=== PATIENT | male | born 1965 | race Caucasian/White ===

== ENCOUNTER 2016-10-28 08:24 | Emergency (ER) | payer OTHER ==
[~2016-10-28] VITALS: Ht 177.8 cm; Wt 123.0 kg
[~2016-10-28 08:24] MED LIST: AMLO5TAB2 PO; ASPI1TAB69 PO; CARA1SUS3 PO; CYCL1TAB29 PO; DIPH25CA PO; LACTCHW3 CHEW; LAMO200T PO; LITH300C2 PO; LORA10TA PO; METR-1 PO; NORC5TAB PO; PRAZ5CAP PO; PRED20 PO; RISP2TAB37 PO; VENTAER INH
[2016-10-28 08:38] VITALS: BP 177/86; PULSE 62; RESP 16; TEMP 98.9; O2SAT 97
[2016-10-28] MEDS ORDERED: PRED20 PO (09:42)
[2016-10-28] MEDS ORDERED: AZIT250T3 PO (09:43)
--- NOTE | 2016-10-28 09:43 | PD ---
HPI Chief Complaint: cough Time Seen by Provider: 09:33 Travel History International Travel<30 days: No Contact w/Intl Traveler<30days: No History of Present Illness HPI This is a 51-year-old male who presents to the emergency department with a history of asthma with increasing cough over the past 4 days, constant, moderate severity feeling like he is wheezing with green sputum production. He' s had increasing difficulty exerting himself. He has been taking his albuterol inhaler but it's not been helping. He's never been hospitalized for his asthma before. He doesn't smoke cigarettes. PFSH Past Medical History Narrative Medical Asthma since childhood Diverticulitis High blood pressure Arthritis: Yes (LOWER BACK) Asthma: Yes Bipolar Disorder: Yes (DIAGNOSED IN ) Cancer: No Cardiovascular Problems: Yes Diminished Hearing: No Diverticulitis: Yes (ULCERATIVE COLITIS) Endocrine: No Gastrointestinal Disorders: Yes (DIVERTICULITIS) Genitourinary: No Hypertension: Yes Immune Disorder: No Musculoskeletal: Yes (T12 COMPRESSION FRACTURE, L5 - S1 HERNIATED) Neurologic: No Psychiatric: No Reproductive: No Immunizations Current: No PNEUMOCCOCAL Vaccine (Year): 2009 Past Surgical History Abdominal Surgery: Yes (INTESTINE RESECTION) Genitourinary Surgery: Yes (DIVETICULITIS/PARTIAL REMOVAL OF COLON 2004) Other Surgery: Yes Social History Alcohol Use: Yes (Occ.) Tobacco Use: No Substance Use: No (Denies) Allergies-Medications (Allergen,Severity, Reaction): Coded Allergies: bee venom protein (honey bee) (Unverified Allergy, Severe, Anaphylaxis, ) codeine (Unverified Allergy, Severe, Hives, 10/18/16) hydrocodone (Unverified Allergy, Severe, Hives, 10/18/16) Reported Meds & Prescriptions Reported Meds & Active Scripts Active Prednisone 20 Mg Tab 40 Mg PO DIRECTED [place] (Hydrocodone-Acetaminophen) 5-325 mg Tab 1-2 Tab PO Q6H PRN Flagyl (Metronidazole) 500 Mg Tab 500 Mg PO TID Reported Carafate Liq (Sucralfate) 1 Gm/10 Ml Susp 1 Gm PO QID on empty stomach Risperdal (Risperidone) 2 Mg Tab 2 Mg PO HS Prazosin (Prazosin HCl) 5 Mg Cap 5 Mg PO HS Loratadine 10 Mg Tab 10 Mg PO DAILY [place] Carbonate 300 Mg Cap 300 Mg PO DIRECTED Lamotrigine 200 Mg Tab 400 Mg PO DAILY Lactinex (Lactobacillus Acidophilus) 1 Chew 1 Tab CHEW BID Diphenhydramine (Diphenhydramine HCl) 25 Mg Cap 25 Mg PO HS PRN Flexeril (Cyclobenzaprine HCl) 10 Mg Tab 10 Mg PO TID PRN Aspirin 81 Mg Tabdr 81 Mg PO DAILY Amlodipine (Amlodipine Besylate) 5 Mg Tab 5 Mg PO DAILY [place] Hfa 18 GM Inh (Albuterol Sulfate) 90 Mcg/Act Aer 2 Puff INH QID PRN Review of Systems Except as stated in HPI: all other systems reviewed are Neg Physical Exam Narrative GENERAL:Well appearing, no acute distress SKIN: Focused skin assessment warm and dry. HEAD: Atraumatic. Normocephalic. EYES: Pupils equal and round. No injection or drainage. ENT: Moist mucous membranes NECK: Trachea midline. CARDIOVASCULAR: Regular rate and rhythm. No murmur appreciated. RESPIRATORY: Mild expiratory wheeze particularly with coughing appreciated, good air movement, speaking full sentences GASTROINTESTINAL: Abdomen soft, non-tender, nondistended. MUSCULOSKELETAL: No obvious deformities. NEUROLOGICAL: Awake and alert. No obvious cranial nerve deficits. Moving all extremities. PSYCHIATRIC: Appropriate mood and affect; insight and judgment normal. Data Data Last Documented VS Vital Signs Date Time Temp Pulse Resp B/P (MAP) Pulse Ox O2 Delivery O2 Flow Rate FiO2 10/28/16 08:38 98.9 62 16 177/86 (116) 97 Room Air MDM Medical Decision Making Medical Screen Exam Complete: Yes Emergency Medical Condition: Yes Interpretation(s) 97% on room air Differential Diagnosis Acute asthma exacerbation, viral syndrome, bronchitis, pneumonia Narrative Course This is a 51-year-old male who presents to the emergency department with a history of asthma with increasing cough and wheezing. He has had green sputum production. I suspect he has acute bronchitis. Patient will be treated with prednisone and azithromycin. He is well-appearing and I don't think he requires any imaging or diagnostics at this time. Diagnosis Primary Impression: Asthmatic bronchitis with acute exacerbation Qualified Codes: J45.21 - Mild intermittent asthma with (acute) exacerbation Additional Instructions: If you develop severe shortness of breath, chest pain, or difficulty breathing return to the emergency department. Use albuterol every 4 hours for the next 2 days. Then use as needed for wheezing. Complete your course of steroids. Complete your course of antibiotics. Follow up with your primary care physician in 2-3 days if your symptoms have not improved. Med/Other Pt SpecificInfo: Prescription(s) given Scripts Azithromycin (Azithromycin) 250 Mg Tab 250 MG PO DIRECTED for Infection, #6 TAB 0 Refills Take 2 tabs (500 mg) on day 1 then 1 tab daily x 4 days. Prov: Mary Rucker MD 10/28/16 Prednisone (Prednisone) 20 Mg Tab 40 MG PO DAILY for 5 Days, #10 TAB 0 Refills Take 40 mg (2 tablets) daily for 5 days Prov: Mary Rucker MD 10/28/16 Disposition: 01 DISCHARGE HOME Condition: Stable Mary Rucker MD Oct 28, 2016 09:43
== END 2016-10-28 10:18 | disposition home or self-care (01) ==
LOC: PHED 08:24
DX: J45.21 Mild intermittent asthma with (acute) exacerbation (principal); F31.9 Bipolar disorder, unspecified; I10 Essential (primary) hypertension
CPT/HCPCS: 99284

== ENCOUNTER 2017-03-28 20:47 | Observation (INO) | payer OTHER ==
[2017-03-28 23:04] LABS: AUTOMATED NEUTROPHIL # 12.4 TH/MM3 (1.8-7.7); BASOPHIL # 0.1 TH/MM3 (0-0.2); BASOPHIL % 0.7 % (0.0-2.0); EOSINOPHIL # 0.4 TH/MM3 (0-0.4); EOSINOPHIL % 2.8 % (0.0-4.0); HEMATOCRIT 45.4 % (39.0-51.0); LYMPH % 11.4 % (9.0-44.0); LYMPHOCYTE # 1.7 TH/MM3 (1.0-4.8); MEAN CELL VOLUME 92.8 FL (80.0-100.0); MEAN CORPUSCULAR HEMOGLOBIN 30.6 PG (27.0-34.0); MEAN PLATELET VOLUME 8.3 FL (7.0-11.0); MONO % 3.8 % (0.0-8.0); MONOCYTE # 0.6 TH/MM3 (0-0.9); NEUT % 81.3 % (16.0-70.0); PLATELET COUNT 250 TH/MM3 (150-450); RED BLOOD COUNT 4.89 MIL/MM3 (4.50-5.90); RED CELL DISTRIBUTION WIDTH 12.7 % (11.6-17.2); WHITE BLOOD COUNT 15.2 TH/MM3 (4.0-11.0)
[2017-03-28 23:05] LABS: BILIRUBIN, URINE NEG (NEG); BLOOD, URINE NEG (NEG); GLUCOSE,URINE NEG (NEG); KETONE, URINE NEG (NEG); NITRITE,URINE NEG (NEG); URINE LEUKOCYTE ESTERASE NEG (NEG)
[2017-03-28 23:10] LABS: CHLORIDE 103 MEQ/L (98-107); POTASSIUM 4.1 MEQ/L (3.5-5.1); SODIUM (NA) 136 MEQ/L (136-145)
[2017-03-28] MEDS: ONDANSETRON HCL 4 MG/2 ML VIAL IV PUSH (23:10)
[2017-03-28] MEDS: MORPHINE SULFATE 2 MG/ML INJ IV PUSH (23:11)
[2017-03-28] MEDS: SODIUM CHLORIDE 0.9% FLUSH 10 ML FLUSH IV FLUSH (23:13)
[2017-03-28 23:14] LABS: ALBUMIN 3.7 GM/DL (3.4-5.0); ANION GAP 7 MEQ/L (5-15); BICARBONATE 26.1 MEQ/L (21.0-32.0); BLOOD UREA NITROGEN 27 MG/DL (7-18); CALCIUM 9.2 MG/DL (8.5-10.1); GLUCOSE,RANDOM 112 MG/DL (74-106)
[2017-03-28 23:17] LABS: ALT (GPT) 48 U/L (12-78); AST (GOT) 29 U/L (15-37); GLOMERULAR FILTRATION RATE 53 ML/MIN (>89)
[2017-03-28 23:19] LABS: TOTAL BILIRUBIN ADULT 0.4 MG/DL (0.2-1.0); TOTAL PROTEIN 6.7 GM/DL (6.4-8.2)
[2017-03-28 23:20] LABS: ALKALINE PHOSPHATASE 88 U/L (45-117); HEMO FLAGS AUTO DIFF
[2017-03-28 23:28] LABS: URINE COLOR STRAW (YELLW/STRAW)
[2017-03-28 23:31] LABS: SQUAMOUS EPITHELIAL CELL URINE 0-5 /hpf (0-5)
[2017-03-28 23:33] LABS: COMMENT (UR) CULT NOT INDICATED; CULTURE IF INDICATED CULT NOT INDICATED
[2017-03-28] MEDS: IOHEXOL 350 MG/ML 10 ML VIAL (for RAD DIAG) IVCONTRAST (23:49)
[2017-03-28] MEDS: SODIUM CHLOR 0.9% 1000 ML INJ 1,000 ML IV (23:57)
[2017-03-28 23:58] LABS: PLATELET ESTIMATE SMEAR NORMAL (NORMAL); PLATELET MORPHOLOGY NORMAL (NORMAL); SCAN/DIFF AUTO DIFF CONFIRMED
[2017-03-29] MEDS ORDERED: ONDANSETRON HCL 4 MG/2 ML VIAL IVP (00:45)
[2017-03-29] MEDS ORDERED: LACTULOSE SYRUP 20 GM/30 ML CUP PO (00:45)
[2017-03-29] MEDS ORDERED: SODIUM CHLORIDE 0.9% FLUSH 10 ML FLUSH IV FLUSH (00:45)
[2017-03-29] MEDS ORDERED: MAGNESIUM HYDROXIDE SUSP 30 ML CUP PO (00:45)
[2017-03-29] MEDS ORDERED: BISACODYL 10 MG SUPP RECTAL (00:45)
[2017-03-29] MEDS ORDERED: NALOXONE HCL 0.4 MG/ML AMP IV PUSH (00:45)
[2017-03-29] MEDS ORDERED: SENNOSIDES 8.6 MG TAB PO (00:45)
[2017-03-29] MEDS: SODIUM CHLOR 0.9% 1000 ML INJ 1,000 ML IV ×3 (01:35→17:01)
[2017-03-29] MEDS: MORPHINE SULFATE 4 MG/ML INJ IV PUSH ×6 (02:46→20:39)
[2017-03-29] MEDS: DOCUSATE SODIUM 50 MG/SENNA 8.6 MG TAB PO ×2 (08:48→20:39)
[2017-03-29] MEDS: SODIUM CHLORIDE 0.9% FLUSH 10 ML FLUSH IV FLUSH ×2 (08:48→20:47)
[2017-03-29] MEDS ORDERED: CYCLOBENZAPRINE HCL 10 MG TAB PO (18:15)
[2017-03-29] MEDS ORDERED: ALBUTEROL SULFATE 90 MCG/ACT HFA 8 GM INHALER INH (18:15)
[2017-03-29 18:26] LABS: AUTOMATED NEUTROPHIL # 6.8 TH/MM3 (1.8-7.7); BASOPHIL % 0.5 % (0.0-2.0); EOSINOPHIL # 0.3 TH/MM3 (0-0.4); HEMATOCRIT 44.9 % (39.0-51.0); HEMO FLAGS DIFF FINAL; HEMOGLOBIN 14.6 GM/DL (13.0-17.0); LYMPH % 21.5 % (9.0-44.0); LYMPHOCYTE # 2.1 TH/MM3 (1.0-4.8); MEAN CELL VOLUME 92.7 FL (80.0-100.0); MEAN CORPUSCULAR HEMOGLOBIN 30.1 PG (27.0-34.0); MEAN CORPUSCULAR HGB CONC 32.4 % (32.0-36.0); MEAN PLATELET VOLUME 8.4 FL (7.0-11.0); MONO % 5.9 % (0.0-8.0); MONOCYTE # 0.6 TH/MM3 (0-0.9); NEUT % 69.1 % (16.0-70.0); PLATELET COUNT 236 TH/MM3 (150-450); RED BLOOD COUNT 4.85 MIL/MM3 (4.50-5.90); RED CELL DISTRIBUTION WIDTH 12.9 % (11.6-17.2); WHITE BLOOD COUNT 9.8 TH/MM3 (4.0-11.0)
[2017-03-29] MEDS: POLYETHYLENE GLYCOL 17 GM PKG PO (18:29)
[2017-03-29 18:53] LABS: ALBUMIN 3.4 GM/DL (3.4-5.0); ALKALINE PHOSPHATASE 83 U/L (45-117); ALT (GPT) 37 U/L (12-78); ANION GAP 7 MEQ/L (5-15); AST (GOT) 20 U/L (15-37); BICARBONATE 23.6 MEQ/L (21.0-32.0); BLOOD UREA NITROGEN 15 MG/DL (7-18); CALCIUM 8.2 MG/DL (8.5-10.1); CHLORIDE 114 MEQ/L (98-107); CREATININE 0.94 MG/DL (0.60-1.30); GLOMERULAR FILTRATION RATE 84 ML/MIN (>89); GLUCOSE,RANDOM 86 MG/DL (74-106); MAGNESIUM 2.2 MG/DL (1.5-2.5); POTASSIUM 4.1 MEQ/L (3.5-5.1); SODIUM (NA) 145 MEQ/L (136-145); TOTAL BILIRUBIN ADULT 0.4 MG/DL (0.2-1.0)
[2017-03-29] MEDS: PRAZOSIN HCL 5 MG CAP PO (20:46)
[2017-03-29] MEDS: risperiDONE 1 MG TAB PO (20:47)
[2017-03-30] MEDS: SODIUM CHLOR 0.9% 1000 ML INJ 1,000 ML IV ×2 (01:15→09:12)
[2017-03-30 06:35] LABS: AUTOMATED NEUTROPHIL # 4.6 TH/MM3 (1.8-7.7); BASOPHIL % 0.3 % (0.0-2.0); EOSINOPHIL # 0.4 TH/MM3 (0-0.4); EOSINOPHIL % 5.6 % (0.0-4.0); HEMATOCRIT 42.5 % (39.0-51.0); HEMO FLAGS DIFF FINAL; HEMOGLOBIN 14.2 GM/DL (13.0-17.0); LYMPH % 28.4 % (9.0-44.0); LYMPHOCYTE # 2.2 TH/MM3 (1.0-4.8); MEAN CELL VOLUME 92.8 FL (80.0-100.0); MEAN CORPUSCULAR HGB CONC 33.4 % (32.0-36.0); MONO % 7.2 % (0.0-8.0); MONOCYTE # 0.6 TH/MM3 (0-0.9); NEUT % 58.5 % (16.0-70.0); PLATELET COUNT 205 TH/MM3 (150-450); RED BLOOD COUNT 4.58 MIL/MM3 (4.50-5.90); RED CELL DISTRIBUTION WIDTH 12.4 % (11.6-17.2); WHITE BLOOD COUNT 7.8 TH/MM3 (4.0-11.0)
[2017-03-30 06:41] LABS: CHLORIDE 114 MEQ/L (98-107); POTASSIUM 4.1 MEQ/L (3.5-5.1); SODIUM (NA) 145 MEQ/L (136-145)
[2017-03-30 06:44] LABS: ANION GAP 6 MEQ/L (5-15); BICARBONATE 25.4 MEQ/L (21.0-32.0); BLOOD UREA NITROGEN 11 MG/DL (7-18); CALCIUM 7.9 MG/DL (8.5-10.1); GLUCOSE,RANDOM 80 MG/DL (74-106)
[2017-03-30 06:48] LABS: CREATININE 0.78 MG/DL (0.60-1.30); GLOMERULAR FILTRATION RATE 105 ML/MIN (>89)
[2017-03-30] MEDS ORDERED: LITHIUM CARBONATE 300 MG CAP PO (09:00)
[2017-03-30] MEDS: SODIUM CHLORIDE 0.9% FLUSH 10 ML FLUSH IV FLUSH (09:00)
[2017-03-30] MEDS: lamoTRIgine 100 MG TAB PO (09:14)
[2017-03-30] MEDS: DOCUSATE SODIUM 50 MG/SENNA 8.6 MG TAB PO (09:14)
[2017-03-30] MEDS: POLYETHYLENE GLYCOL 17 GM PKG PO (09:14)
[2017-03-30] MEDS: amLODIPine BESYLATE 5 MG TAB PO (09:14)
[2017-03-30] MEDS: LITHIUM CARBONATE 300 MG TAB PO (09:55)
== END 2017-03-30 15:47 | disposition home or self-care (01) ==
LOC: PHEDA 03-29 00:46 → PH3A 03-29 02:11 → PHED 20:47
DX: A08.4 Viral intestinal infection, unspecified (principal); N17.9 Acute kidney failure, unspecified; R11.0 Nausea; J45.909 Unspecified asthma, uncomplicated; I10 Essential (primary) hypertension; K57.92 Diverticulitis of intestine, part unspecified, without perforation or abscess without bleeding; K51.90 Ulcerative colitis, unspecified, without complications; M48.54XA Collapsed vertebra, not elsewhere classified, thoracic region, initial encounter for fracture; Z90.49 Acquired absence of other specified parts of digestive tract
CPT/HCPCS: 74018; 74177; 80048; 80053; 81001; 83735; 84100; 84443; 85025; 96361; 96374; 96375; 96376; 99285-25